=== PATIENT | male | born 1980 ===

== ENCOUNTER 2017-08-09 18:34 | Emergency (ER) | payer SELFPAY ==
[2017-08-09 18:44] VITALS: TEMP 97.9
--- NOTE | 2017-08-09 18:57 | C.PDOC ---
History Of Present Illness 36 yo male come in for evaluation of Right upper toothache gradually developed for past 3 days. Pt admits, had root canal done to painful tooth 3 months ago, since then pain is intermittent, worse for few dyas. Otherwise, pt denies fever , chills, headache, dizziness, vertigo, drooling, facial swelling, dyspnea, CP, SOB, wheezing, denies any other active complaints. Ambulate to ED for evaluation , not in any apparent distress. . Time Seen by Provider: 08/09/17 18:44 Chief Complaint (Nursing): Dental Pain History Per: Patient Onset/Duration Of Symptoms: Gradual Past Medical History Reviewed: Historical Data, Nursing Documentation, Vital Signs Vital Signs: Last Vital Signs Temp 97.9 F 08/09/17 18:43 Pulse 86 08/09/17 18:43 Resp 20 08/09/17 18:43 BP 121/84 08/09/17 18:43 Pulse Ox 97 08/09/17 18:43 - Medical History PMH: No Chronic Diseases Surgical History: No Surg Hx Family History: States: No Known Family Hx - Social History Hx Alcohol Use: No Hx Substance Use: No - Immunization History Hx Tetanus Toxoid Vaccination: No Hx Influenza Vaccination: No Hx Pneumococcal Vaccination: No Review Of Systems Except As Marked, All Systems Reviewed And Found Negative. Constitutional: Negative for: Fever, Chills ENT: Positive for: Mouth Pain. Negative for: Ear Discharge, Nose Discharge, Mouth Swelling, Throat Pain, Throat Swelling Cardiovascular: Negative for: Chest Pain Respiratory: Negative for: Cough, Shortness of Breath, Wheezing Gastrointestinal: Negative for: Nausea, Vomiting Musculoskeletal: Negative for: Neck Pain Skin: Negative for: Rash Neurological: Negative for: Weakness, Numbness, Headache, Dizziness Physical Exam - Physical Exam Appears: Well, Non-toxic, No Acute Distress Skin: Normal Color, Warm, No Rash Head: Normacephalic Eye(s): bilateral: PERRL Ear(s): Bilateral: Normal Nose: Normal, No Flaring, No Discharge Oral Mucosa: Moist, No Drooling, No Trismus Tongue: Normal Appearing, No Swelling, No Lesions Lips: Normal Appearing, No Lesions Teeth: No Caries, Tender To Palpation (#3) Gingiva: No Erythema, No Swelling, Tender (#3), No Abscess Throat: No Erythema, No Exudate, No Drooling, Other (Uvula midline, no edema.) Neck: Trachea Midline, Supple Respiratory: No Decreased Breath Sounds, No Accessory Muscle Use, No Rales, No Rhonchi, No Stridor, No Wheezing Extremity: Normal ROM, No Deformity Neurological/Psych: Oriented x3, Normal Speech ED Course And Treatment O2 Sat by Pulse Oximetry: 97 Pulse Ox Interpretation: Normal Progress Note: On re-eval, pt is afebrile, hemodynamicaly stable. Non-toxic, tolerate PO well in ED. PulsEOx 97% RA. ENT: exam c/w toothache #3, no evidence of abscess, no facial edema or cellulitis. uvula midline, no edema. Neck: Supple, (-) meningeal sign. Lungs: CTA B/L, BS equal B/L. Neurologicaly intact. Pt advised, ref. to F/U with Dentist in 2-3 days for re-eavl. return to ED if any worsening or new changes. Disposition Counseled Patient/Family Regarding: Diagnosis, Need For Followup, Rx Given - Disposition Referrals: [facility] [Provider Group] [facility] [Provider Group] Disposition: HOME/ ROUTINE Disposition Time: 18:57 Condition: STABLE Additional Instructions: WARM SALT WATER TOOTH BATHS TAKE MEDICATION PRESCRIBED FOLLOW UP WITH DENTIST IN 2-3 DAYS FOR RE-EVALUATION. RETURN TO ED IF ANY WORSENING OR NEW CHANGES. Prescriptions: Clindamycin [Cleocin] 300 mg PO Q6 #28 cap Ibuprofen [Motrin Tab] 600 mg PO Q8 #20 tab Instructions: Toothache (ED) Print Language: YEMENI - Clinical Impression Clinical Impression: Toothache
[2017-08-09 22:20] VITALS: BP 118/75; PULSE 78; RESP 16; O2SAT 98
== END 2017-08-09 19:53 | disposition home or self-care (01) ==
LOC: C.ER 18:34
DX: K08.89 Other specified disorders of teeth and supporting structures (principal)